=== PATIENT | female | born 1965 | race Caucasian/White ===

== ENCOUNTER 2018-05-15 21:48 | Emergency (ER) | payer OTHER, MEDICAID ==
[~2018-05-15] VITALS: Ht 139.7 cm; Wt 45.4 kg
[~2018-05-15 21:48] MED LIST: BUPR300T46 PO; CYCL10TA9 PO; DOCU50CA7 PO; DULO60CA64 PO; FAMO20TA8 PO; GABA-531 PO; HYG25 PO; LIP20 PO; MELO15TA13 PO; SENN8.6T19 PO; TRAM50TA2 PO
[2018-05-15] MEDS ORDERED: FLUORESCEIN SODIUM 1 MG OPHTHALMIC STRIP OP ONE (21:49)
[2018-05-15] MEDS ORDERED: BALANCED SALT IRRIG SOLN 15 ML IO ONE (21:49)
[2018-05-15] MEDS ORDERED: TETRACAINE HCL 0.5% OPHTHALMIC DROPS 15 ML OP ONE (21:49)
[2018-05-15 22:03] VITALS: BP_SYST 145
[2018-05-16 01:15] VITALS: BP_SYST 145
== END 2018-05-16 01:15 | disposition home or self-care (01) ==
LOC: SED 21:48
DX: H57.12 Ocular pain, left eye (principal); I10 Essential (primary) hypertension; Z88.6 Allergy status to analgesic agent; Z91.02 Food additives allergy status; Z79.899 Other long term (current) drug therapy
CPT/HCPCS: 99282

== ENCOUNTER 2019-04-03 11:29 | Inpatient (IN) | payer OTHER, MEDICAID ==
[~2019-04-03] VITALS: Ht 139.7 cm; Wt 50.3 kg
[2019-04-03 11:29] VITALS: BP_SYST 132
--- NOTE | 2019-04-03 11:29 | NUR ---
BROUGHT IN BY [facility], PLACED IN BED #4 AND TRIAGED. REPORT GIVEN TO GABI
--- NOTE | 2019-04-03 11:44 | NUR ---
Patient to ER bed 04 to gown for evaluation. Side rails up.
--- NOTE | 2019-04-03 11:45 | NUR ---
Pt presents to ED c/o generalized body pain,pt newly DX: fibromyalgia.
--- NOTE | 2019-04-03 12:01 | NUR ---
DR ARGUELLO AT BEDSIDE FOR EVALUATION
[2019-04-03] MEDS ORDERED: ONDANSETRON HCL 4 MG/2 ML VIAL IVP ONE (12:15)
[2019-04-03] MEDS ORDERED: fentaNYL CITRATE/PF 100 MCG/2 ML AMP IVP ONE (12:15)
[2019-04-03] MEDS ORDERED: NACL 0.9% 2,000 ML IV ONE (12:15)
--- NOTE | 2019-04-03 12:20 | NUR ---
ABG BEING DONE AT BEDSIDE.
[2019-04-03 12:48] LABS: BASOPHILS % (AUTO) 0.6 % (0.0-2.0); EOSINOPHILS % (AUTO) 0.8 % (0.0-4.0); HEMOGLOBIN 14.5 g/dL (12.0-16.0); LYMPHOCYTES # (AUTO) 2.6 K/uL (1.0-5.5); MEAN CORPUSCULAR HEMOGLOBIN 29 pg (27-31); MEAN CORPUSCULAR HGB CONC 34 % (32-36); MEAN CORPUSCULAR VOLUME 85 fL (79.0-98.0); MONOCYTES # (AUTO) 0.7 K/uL (0.0-1.0); MONOCYTES % (AUTO) 10.8 % (1.7-9.3); NEUTROPHILS # (AUTO) 2.8 K/uL (1.8-7.7); NEUTROPHILS % (AUTO) 45.8 % (40.0-70.0); PLATELET COUNT (AUTO) 341 K/uL (130-430); RED BLOOD CELL COUNT(AUTO) 5.04 MIL/uL (4.2-6.2); RED CELL DISTRIBUTION WIDTH 13.4 % (9.0-15.0); WHITE BLOOD COUNT (AUTO) 6.1 K/uL (4.8-10.8)
[2019-04-03 12:51] LABS: CALCIUM 9.5 mg/dL (8.4-11.0); CREATININE 0.99 mg/dL (0.55-1.30)
[2019-04-03 12:55] LABS: PROTHROMBIN TIME 9.9 SECS (9.5-12.5)
[2019-04-03 13:02] LABS: ALBUMIN 3.8 g/dL (3.4-4.8); TOTAL BILIRUBIN 0.4 mg/dL (0.0-1.0)
[2019-04-03 13:07] LABS: POTASSIUM 2.7 mmol/L (3.5-5.1)
[2019-04-03] MEDS ORDERED: POTASSIUM CHLORIDE 40 MEQ in NS 250 ML IV ONE (13:15)
--- NOTE | 2019-04-03 15:00 | NUR ---
PT REPORTS PAIN AT TOLERABLE LEVEL 4/10.
[2019-04-03 15:20] LABS: BILIRUBIN,URINE NEGATIVE (NEGATIVE); BLOOD, URINE 2+ (NEGATIVE); CLARITY/URINE SL CLOUDY (CLEAR); COLOR,URINE YELLOW (YELLOW); GLUCOSE,URINE NEGATIVE (NEGATIVE); KETONES,URINE 1+ (NEGATIVE); LEUKOCYTE ESTERASE ,URINE 3+ (NEGATIVE); NITRITE, URINE NEGATIVE (NEGATIVE); PROTEIN URINE NEGATIVE (NEGATIVE); UROBILINOGEN,URINE 0.2 (0.2-1.0)
[2019-04-03 15:29] LABS: BACTERIA,URINE MANY /HPF (None Seen); MUCUS,URINE None Seen /LPF (None Seen); RBC,URINE 0-3 /HPF (0-3); WBC,URINE 80-100 /HPF (0-3)
--- NOTE | 2019-04-03 15:45 | NUR ---
Pt tolerating K-rider.Continuing to monitor
[2019-04-03] MEDS ORDERED: cefTRIAXone 1 GM IVPB PREMIX 50 ML IV ONE (16:00)
--- NOTE | 2019-04-03 16:00 | NUR ---
Medication reconciliation completed with information provided by PT. Any prior medication reconciliation on file was reviewed and corrected.
--- NOTE | 2019-04-03 16:32 | NUR ---
ADMISSION NOTE Received patient from ER via xavi, received report from GABI FINLEY. Patient admitted with diagnosis of UTI. Patient oriented to hospital routine, call light, toileting and safety-patient verbalized understanding.
[2019-04-03 16:53] VITALS: BP_SYST 135
--- NOTE | 2019-04-03 17:00 | NUR ---
rounds rec patient from er awake alert with ivf infusing well on the l arm no infiltration noted. c.o of gen body pain at this time but stated to be manageable. ambulates to the br with min assists. resp easy and unlabored. bed to the lowest position and siode rails up and locked. call light within reached. will continue to monitor patient.
--- NOTE | 2019-04-03 17:10 | NUR ---
Patient will be admitted to care of . Admitted to medsurg unit. Will go to room 126A. Summary report printed. Report will be given at bedside.
--- NOTE | 2019-04-03 19:01 | NUR ---
CONSULTATION PAGED/CALLED Reason for Consultation: UTI Person Who was Notified: SOPHY Consulting Physician: DR. SERRANO Registered Respiratory Therapist Specialty: ID Ordering Physician: RAQEUL HI
[2019-04-03 20:00] VITALS: BP_SYST 142
--- NOTE | 2019-04-03 20:15 | NUR ---
PATIENT IS COMPLAINING OF SEVERE HEADACHE AND GENERALIZED PAIN. MED REC HAS NOT BEEN REVIEWED. WILL PAGE DOCTORS FOR ORDERS.
--- NOTE | 2019-04-03 20:35 | NUR ---
PAGING DR. RAQUEL BELLO FOR ORDERS Paged Dr. Bello per primary nurse's request for orders. Spoke with Lily from exchange. Will wait for MD to call back.
--- NOTE | 2019-04-03 21:23 | NUR ---
SECOND PAGE OUT TO DR. RAQUEL BELLO Second page for Dr. Raquel Bello for orders. Spoke with Kelly from exchange. Will wait for MD to call back.
--- NOTE | 2019-04-03 21:25 | NUR ---
PATIENT CRYING IN BED. STILL HAVING SEVERE HEADACHE. SPOKE WITH PATIENT'S OVER THE PHONE REGARDING PROMISED TREATMENT BY THE ADMITTING DOCTOR. SIGNALING PROJECT ENGINEER NOTIFIED REGARDING THE SITUATION REGARDING MEDICATION NEED.
--- NOTE | 2019-04-03 21:51 | NUR ---
Received Call back from Selam Arnold Continue all home medications. New order Tylenol 650mg for pain 1-3/fever, [place] 5/325mg for moderate pain 4-6, and [place] 10/325mg for severe pain 7-10.
[2019-04-03] MEDS ORDERED: HYDROcodone/ACETAMIN 5-325 MG TAB (NORCO/ VICODIN) PO PRN (22:00)
[2019-04-03] MEDS ORDERED: FAMOTIDINE 20 MG TABLET PO PRN (22:00)
[2019-04-03] MEDS ORDERED: GABAPENTIN 300 MG CAPSULE PO SCH (22:00)
[2019-04-03] MEDS ORDERED: HYDROcodone/ACETAMIN 10-325 MG TAB PO PRN (22:00)
[2019-04-03] MEDS ORDERED: CHLORTHALIDONE 25 MG TABLET (HYGROTON) PO SCH (22:00)
[2019-04-03] MEDS ORDERED: MELOXICAM 7.5 MG TABLET PO SCH (22:00)
[2019-04-03] MEDS ORDERED: traMADol HCL HCL 50 MG TABLET (ULTRAM) PO SCH (22:30)
[2019-04-03] MEDS ORDERED: DOCUSATE SODIUM 100 MG CAPSULE PO SCH (22:30)
--- NOTE | 2019-04-03 22:45 | NUR ---
MEDICATIONS ADMINISTERED WITH NO ADVERSE EFFECTS. INDICATION AND SIDE EFFECTS EDUCATION PROVIDED. WILL MONITOR PATIENT FOR ANY CHANGE IN CONDITION.
[2019-04-03] MEDS: ACETAMINOPHEN 325 MG TABLET PO PRN (22:56)
[2019-04-04] VITALS: BP_SYST 121
--- NOTE | 2019-04-04 01:15 | NUR ---
PATIENT IN BED. VITALS ARE STABLE. NO FURTHER COMPLAINTS AT THIS TIME.
--- NOTE | 2019-04-04 04:33 | NUR ---
PATIENT ASLEEP IN BED. NO CHANGE IN CONDITION AND WILL MONITOR ON ROUNDS.
--- NOTE | 2019-04-04 06:46 | NUR ---
CLOSING NOTES PATIENT IN BED RESTING. IV CLEAN DRY AND INTACT. NO RESPIRATORY DISTRESS. BED LOCKED IN LOW POSITION. ALL NEEDS HAVE BEEN MET AND WILL ENDORSE CARE TO ONCOMING NURSE.
--- NOTE | 2019-04-04 07:22 | NUR ---
OPENING NOTE Patient resting in the bed. No acute distress. AAO x 4. Denied of pain. Skin warm and dry to touch. SL intact to LAC, no redness, no swelling, patent. Discussed the safety measure maintained, use call light when needs help, and plan of care, verbally understanding. Safety measure maintained. Call light within reached. Bed locked in low position, side rails up. Refused bed alarm, risk and benefit explained, verbally understanding. Will continue to monitor.
[2019-04-04 07:55] VITALS: BP_SYST 125
[2019-04-04] MEDS ORDERED: cefTRIAXone 1 GM IVPB PREMIX 50 ML IV SCH (09:00)
[2019-04-04] MEDS: CHLORTHALIDONE 25 MG TABLET (HYGROTON) PO SCH (09:48)
[2019-04-04] MEDS: MELOXICAM 7.5 MG TABLET PO SCH (09:48)
[2019-04-04] MEDS: traMADol HCL HCL 50 MG TABLET (ULTRAM) PO SCH ×3 (09:48→21:33)
[2019-04-04] MEDS: GABAPENTIN 300 MG CAPSULE PO SCH ×2 (09:49→21:33)
[2019-04-04] MEDS: DOCUSATE SODIUM 100 MG CAPSULE PO SCH ×2 (09:49→21:33)
[2019-04-04] MEDS: buPROPion HCL 150 MG XL TAB PO SCH (09:49)
[2019-04-04] MEDS: CYCLOBENZAPRINE HCL 10 MG TABLET (FLEXERIL) PO SCH ×2 (09:49→21:34)
--- NOTE | 2019-04-04 09:49 | NUR ---
SCHEDULE MED GIVEN.
--- NOTE | 2019-04-04 11:30 | NUR ---
ROUND Patient resting in the bed. No acute distress. No c/o pain at this time. Safety measure maintained. Call light within reached. Bed locked in low position, side rails up. Continue to monitor.
[2019-04-04 12:40] VITALS: BP_SYST 124
--- NOTE | 2019-04-04 13:30 | NUR ---
ROUND Patient resting in the bed. No acute distress. No c/o pain at this time. at bedside. Safety measure maintained. Call light within reached. Bed locked in low position, side rails up. Continue to monitor.
--- NOTE | 2019-04-04 15:22 | NUR ---
SEEN AND EXAMINED BY PATTI HI COVERED FRO RAQUEL HI.
[2019-04-04 16:20] VITALS: BP_SYST 125
--- NOTE | 2019-04-04 17:00 | NUR ---
ROUND Patient resting in the bed. No acute distress. at bedside. Safety measure maintained. Call light within reached. Bed locked in low position, side rails up. Continue to monitor.
--- NOTE | 2019-04-04 18:55 | NUR ---
CLOSING NOTE Patient resting in the bed. No acute distress. AAO x 4. No c/o pain. Skin warm and dry to touch. SL intact to LAC, no redness, no swelling, patent. All needs met and attended. at bedside. Safety measure maintained. Call light within reached. Bed locked in low position, side rails up. Refused bed alarm, risk and benefit explained, verbally understanding. Will endorse to night nurse.
--- NOTE | 2019-04-04 19:10 | NUR ---
OPENING NOTE BEDSIDE REPORT GIVEN WITH PATIENT IN CHAIR RESTING. AAOX4 AND ABLE TO VERBALIZE HER NEEDS. IV ON THE LEFT AC 20G FLUSHED AND PATENT. NO S/S OF INFECTION. PATIENT IS AMBULATORY WITH A STEADY GAIT. INFORMED PATIENT OF MEDICATIONS FOR TONIGHT. REFUSED BED ALARM WITH EDUCATION PROVIDED. CALL LIGHT PLACED WITHIN REACH AND WILL MONITOR ON ROUNDS.
[2019-04-04 20:00] VITALS: BP_SYST 105
[2019-04-04] MEDS: DULoxetine HCL 30 MG CAPSULE.DR (CYMBALTA) PO SCH (21:00)
[2019-04-04] MEDS: ATORVASTATIN 20 MG TABLET PO SCH (21:33)
[2019-04-04] MEDS: SENNOSIDES 8.6 MG TABLET PO SCH (21:33)
--- NOTE | 2019-04-04 22:28 | NUR ---
PATIENT IN BED RESTING. MEDICATION TOLERATED WELL. REFUSED CYMBALTA MEDICATION, STATING SHE NO LONGER TAKES IT AND STATES SHE VERIFIED IT WITH HER OVER THE PHONE. REQUESTED NORCO FOR PAIN. ICE PACKS GIVEN FOR PAIN RELIEF OF HEADACHES. WILL CONTINUE TO MONITOR ON ROUNDS.
[2019-04-05 00:26] VITALS: BP_SYST 109
--- NOTE | 2019-04-05 00:36 | NUR ---
ASLEEP IN BED. NO FACIAL GRIMACING NOTED. NO RESPIRATORY DISTRESS. CALL LIGHT WITHIN REACH.
--- NOTE | 2019-04-05 03:35 | NUR ---
PATIENT IN BED RESTING. NO COMPLAINTS OF PAIN OR RESPIRATORY DISTRESS. CALL LIGHT WITHIN REACH AND MONITOR ON ROUNDS.
--- NOTE | 2019-04-05 07:38 | NUR ---
OPENING NOTE Patient resting in the bed. No acute distress. AAO x 4. Denied of pain at this time. Skin warm and dry to touch. SL intact to LAC, no redness, no swelling, patent. Discussed the safety measure maintained, use call light when needs help, and plan of care, verbally understanding. Safety measure maintained. Bed locked in low position, side rails up. Refused bed alarm, risk and benefit explained, verbally understanding. Call light within reached. Will continue to monitor.
[2019-04-05 07:55] VITALS: BP_SYST 150
[2019-04-05] MEDS: traMADol HCL HCL 50 MG TABLET (ULTRAM) PO SCH ×3 (09:15→20:37)
[2019-04-05] MEDS: DOCUSATE SODIUM 100 MG CAPSULE PO SCH ×2 (09:15→20:35)
[2019-04-05] MEDS: CYCLOBENZAPRINE HCL 10 MG TABLET (FLEXERIL) PO SCH ×2 (09:15→20:36)
[2019-04-05] MEDS: buPROPion HCL 150 MG XL TAB PO SCH (09:15)
[2019-04-05] MEDS: CHLORTHALIDONE 25 MG TABLET (HYGROTON) PO SCH (09:15)
[2019-04-05] MEDS: MELOXICAM 7.5 MG TABLET PO SCH (09:15)
[2019-04-05] MEDS: GABAPENTIN 300 MG CAPSULE PO SCH ×2 (09:15→20:37)
--- NOTE | 2019-04-05 10:10 | NUR ---
SEEN AND EXAMINED BY ADALBERTO CORBETT.
[2019-04-05] MEDS: cefTRIAXone 1 GM IVPB PREMIX 50 ML IV SCH (10:14)
--- NOTE | 2019-04-05 11:50 | NUR ---
BED BATH Bed bath provided, linen and hospital gown changed. Procedure tolerated well. No acute distress. Safety measure maintained. Call light within reached. Bed locked in low position, side rails up. Continue to monitor.
[2019-04-05 13:10] VITALS: BP_SYST 116
--- NOTE | 2019-04-05 13:20 | NUR ---
BATHROOM Patient ambulatory to bathroom in steady gait. Void freely, no hematuria/dysuria noted. Safety measure maintained. Continue to monitor.
--- NOTE | 2019-04-05 15:05 | NUR ---
SEEN AND EXAMINED BY RAQUEL FALCON WITH ORDER RECEIVED.
--- NOTE | 2019-04-05 15:17 | NUR ---
CONSULT GI ABDOMINAL PAIN DR NASSAR [phone] DR BANDA BUCCARO S/[facility]
--- NOTE | 2019-04-05 17:00 | NUR ---
ROUND Patient resting in the bed. No acute distress. at the bedside. Safety measure maintained. Bed locked in low position, side rails up, Call light within reached. Continue to monitor.
[2019-04-05 17:04] VITALS: BP_SYST 147
--- NOTE | 2019-04-05 18:33 | NUR ---
CLOSING NOTE Patient resting in the bed. No acute distress. No c/o pain during shift. Skin warm and dry to touch. SL intact to LAC, no redness, no swelling, patent. All needs met and attended. Safety measure maintained. Bed locked in low position, side rails up. Refused bed alarm, risk and benefit explained, verbally understanding. Call light within reached. Will endorse to night nurse.
[2019-04-05 19:00] VITALS: BP_SYST 143
--- NOTE | 2019-04-05 19:15 | NUR ---
change of shift.pt.presents quiescent affect;calm,viewing tv programming via telephone.no c/o pain,nausea.pt.capable to reposition self.general status stable.respiratory status stable.iv access;intact;patent,v lock.call light/telephone w/in reach of the pt.
[2019-04-05 20:00] VITALS: BP_SYST 143
--- NOTE | 2019-04-05 20:00 | NUR ---
pt.assessed.v/s assessed;values w/in noram limits.pt.prestr bno c/opoa,nausea.pt.presents quiescent affect;calm.viewing tv programming via phone.i have apprised the pt.that snacks/beverages are available w/in the shift.no requests posited @this hour.general status stable/respiratory status stable@room air.unlabored.call light/telephone w/in the reach of the pt.i have provided the pt.a room telephone.i have provided the pt.the demonstration re;indication for the room telephone.
[2019-04-05] MEDS: DULoxetine HCL 30 MG CAPSULE.DR (CYMBALTA) PO SCH (20:36)
[2019-04-05] MEDS: ATORVASTATIN 20 MG TABLET PO SCH (20:37)
[2019-04-05] MEDS: SENNOSIDES 8.6 MG TABLET PO SCH (20:37)
--- NOTE | 2019-04-05 21:00 | NUR ---
2100p medications administered.pt.had refused the ultram;50mg po scheduled:q-12hrs,.i have apprised the pt.that norco; 5/325mg or 10/325mg po is ordered if presents pain w/in the shift.no requests post @this hour.
--- NOTE | 2019-04-05 22:00 | NUR ---
pt.assessed.pt.presents quiescent affect;calm,pt.viewing tv programming via phone.no c/o pain,nausea@this hour. no requests posited.general status stable.respiratory status stable.pt.capable to reposition self.call light/telephone w/in the reach of the pt.
--- NOTE | 2019-04-05 23:30 | NUR ---
;a had requested the pt's face sheet faxed to his home;nsg clarified w/angel;rn/boiler house operator the issue was confirmed w/in legal parameters to faxed the pt's face sheet to home;fax.fax sent and confirmed spa receptionist per 's return call.
--- NOTE | 2019-04-06 | NUR ---
pt.assessed.v/s assessed:values w/in normal limits.pt.presents quiescent affect;calm,somnolent. general status stable.respiratory status stable.pt.capable to reposition self.call light/telephone w/in the reach of the pt.
[2019-04-06 00:35] VITALS: BP_SYST 138
[2019-04-06] MEDS: ACETAMINOPHEN 325 MG TABLET PO PRN (00:47)
--- NOTE | 2019-04-06 01:00 | NUR ---
pt.had requested medication;pain.i have administered tylenol;650mg po.to f/u re;pain medication efficacy per pain mgx protocol. no additional requests posited @this hour.
--- NOTE | 2019-04-06 02:00 | NUR ---
pt.assessed.pt.presents quiescent affect;calm,somnolent.general status stable.respiratory status stable;unlabored. pt.capable to reposition self.call light/telephone w/in the reach of the pt.
--- NOTE | 2019-04-06 04:00 | NUR ---
pt.assessed.pt.presents quiescent affect;calm,somnolent.general status stable.respiratory status stable;unlabored, pt.capable to reposition self.call light/telephone w/in the reach of the pt.
--- NOTE | 2019-04-06 06:47 | NUR ---
pt.assessed.pt.presents quiescent affect;calm,somnolent.general status stable.respiratory status stable.unlabored. pt.capable to reposition self.pt.to be assessed per ;sheila this am;04/06/19.call light/telephone w/in the reach of the pt.
[2019-04-06 07:21] LABS: BASOPHILS % (AUTO) 0.7 % (0.0-2.0); EOSINOPHILS # (AUTO) 0.1 K/uL (0.0-0.4); EOSINOPHILS % (AUTO) 1.3 % (0.0-4.0); HEMATOCRIT 40.5 % (36-48); HEMOGLOBIN 13.8 g/dL (12.0-16.0); LYMPHOCYTES # (AUTO) 1.5 K/uL (1.0-5.5); MEAN CORPUSCULAR HEMOGLOBIN 30 pg (27-31); MEAN CORPUSCULAR HGB CONC 34 % (32-36); MEAN CORPUSCULAR VOLUME 87 fL (79.0-98.0); MONOCYTES # (AUTO) 0.4 K/uL (0.0-1.0); MONOCYTES % (AUTO) 6.5 % (1.7-9.3); NEUTROPHILS # (AUTO) 4.6 K/uL (1.8-7.7); NEUTROPHILS % (AUTO) 68.5 % (40.0-70.0); PLATELET COUNT (AUTO) 342 K/uL (130-430); RED BLOOD CELL COUNT(AUTO) 4.66 MIL/uL (4.2-6.2); RED CELL DISTRIBUTION WIDTH 13.3 % (9.0-15.0); WHITE BLOOD COUNT (AUTO) 6.7 K/uL (4.8-10.8)
--- NOTE | 2019-04-06 07:21 | NUR ---
rn opening note Report was endorsed by night nurse. Patient is laying in bed appears to be resting breathing is equal and non labored. Patient shows no signs of any distress. Patient has all safety precautions in place. will continue to monitor.
[2019-04-06 07:27] LABS: ALBUMIN 3.5 g/dL (3.4-4.8); C-REACTIVE PROTEIN QUANT 0.6 mg/dL (0-0.5); CALCIUM 9.2 mg/dL (8.4-11.0); CREATININE 0.88 mg/dL (0.55-1.30); POTASSIUM 3.4 mmol/L (3.5-5.1); TOTAL BILIRUBIN 0.3 mg/dL (0.0-1.0)
[2019-04-06 08:20] LABS: ERYTHROCYTE SEDIMENTATION RATE 12 MM/HR (0-20)
[2019-04-06] MEDS: GABAPENTIN 300 MG CAPSULE PO SCH (08:22)
[2019-04-06] MEDS: DOCUSATE SODIUM 100 MG CAPSULE PO SCH (08:22)
[2019-04-06] MEDS: traMADol HCL HCL 50 MG TABLET (ULTRAM) PO SCH ×2 (08:23→15:00)
[2019-04-06] MEDS: MELOXICAM 7.5 MG TABLET PO SCH (08:24)
[2019-04-06] MEDS: CYCLOBENZAPRINE HCL 10 MG TABLET (FLEXERIL) PO SCH (08:24)
[2019-04-06] MEDS: buPROPion HCL 150 MG XL TAB PO SCH (08:24)
[2019-04-06 08:26] VITALS: BP_SYST 142
[2019-04-06] MEDS: cefTRIAXone 1 GM IVPB PREMIX 50 ML IV SCH (09:26)
[2019-04-06] MEDS: CHLORTHALIDONE 25 MG TABLET (HYGROTON) PO SCH (09:28)
--- NOTE | 2019-04-06 09:46 | NUR ---
medication/NPO Patient is awake and alert no signs of any distress, breathing is equal and non labored. Patients scheduled medication given as ordered. Patient placed NPO for gastric emptying test patient made aware. Spoke with lenka from [employer] states she will be here to get the patient around [phone]. Patient made aware. Patient has no further questions. Patient states pain is comfortable at 4/10. all safety precautions in place. Patient educated tool design draftsperson light call light is with patient. will continue to monitor.
--- NOTE | 2019-04-06 10:29 | NUR ---
NEW IV site Patient IV catheter to left ac 20g is no longer flushing removed catheter, catheter is intact, apply gauze and tape with pressure to site. New IV site obtain left wrist 22 G good blood return flushing well. will continue to monitor.
--- NOTE | 2019-04-06 12:00 | NUR ---
rn rounding Patient is laying in bed awake and alert family member is at bed side. Patient has all safety precautions in place. Call light is with her educated to use for assistance. Patient has no other needs at this time. will continue to monitor.
[2019-04-06 12:37] VITALS: BP_SYST 146
--- NOTE | 2019-04-06 14:24 | NUR ---
Patient is having gastric emptying study done, transferred via wheel chair.
--- NOTE | 2019-04-06 15:30 | NUR ---
Patient is refusing medication patient states she does not want it. Patient has no other needs at this time. Patient educated to use call light for assistance. Call light is with patient. Patient has no other needs at this time. will continue to monitor.
[2019-04-06 16:40] VITALS: BP_SYST 146
[2019-04-06 17:01] VITALS: BP_SYST 146
--- NOTE | 2019-04-06 17:30 | NUR ---
discharge Patient is awake and alert sitting in bed, spouse at bed side. charge nurse spoke with MD received orders for Discharge. Patient educated to follow up with Primary care physician and to follow up with GI. Patient provided discharge paper work reviewed and patient has no further questions. Patients IV catheter removed catheter intact, apply gauze and tape to insertion site. Patient ID band removed. Patient refused wheel chair transferred and walked to car. Patient spouse Rudy to bring patient home.
== END 2019-04-06 17:30 | disposition home or self-care (01) | DRG 690 ==
LOC: SED 11:29 → SMU 16:19
PROVIDERS: ADMIT Preventive Medicine Preventive Medicine/Occupational Environmental Medicine; ATTEND Preventive Medicine Preventive Medicine/Occupational Environmental Medicine
DX: N10 Acute pyelonephritis (principal); M79.7 Fibromyalgia; K57.90 Diverticulosis of intestine, part unspecified, without perforation or abscess without bleeding; M06.9 Rheumatoid arthritis, unspecified; M41.9 Scoliosis, unspecified; M19.90 Unspecified osteoarthritis, unspecified site; E87.5 Hyperkalemia; G89.4 Chronic pain syndrome; I10 Essential (primary) hypertension; K21.9 Gastro-esophageal reflux disease without esophagitis; K59.00 Constipation, unspecified; Z87.440 Personal history of urinary (tract) infections; Z98.1 Arthrodesis status; Z79.899 Other long term (current) drug therapy; Z88.6 Allergy status to analgesic agent; Z91.018 Allergy to other foods
CPT/HCPCS: 36415; 71045; 78264-TC; 80053; 81000-TC; 83605; 83690-TC; 84484; 85025; 85610-TC; 85651-TC; 85730-TC; 86140; 87040-TC; 87086; 93005; 96361; 96365; 96368; 96375; 99285; A9541; J0696; J2405; J3010; J3480; J7050

== ENCOUNTER 2019-04-06 23:13 | Emergency (ER) | payer OTHER, MEDICAID ==
[~2019-04-06] VITALS: Ht 139.7 cm; Wt 45.4 kg
[2019-04-06 23:15] VITALS: BP_SYST 127
[2019-04-07 00:54] VITALS: BP_SYST 125
== END 2019-04-07 00:54 | disposition home or self-care (01) ==
LOC: SED 23:13
DX: T42.6X1A Poisoning by other antiepileptic and sedative-hypnotic drugs, accidental (unintentional), initial encounter (principal); T45.0X1A Poisoning by antiallergic and antiemetic drugs, accidental (unintentional), initial encounter; Z88.6 Allergy status to analgesic agent; Z91.018 Allergy to other foods; Z79.899 Other long term (current) drug therapy; Y92.89 Other specified places as the place of occurrence of the external cause
CPT/HCPCS: 99281; 99283

== ENCOUNTER 2020-07-04 16:55 | Emergency (ER) | payer OTHER, MEDICAID ==
[~2020-07-04] VITALS: Ht 137.2 cm; Wt 46.3 kg
[~2020-07-04 16:55] MED LIST changes: -DULO60CA64 PO; +DULO60CA65 PO
[2020-07-04 17:00] VITALS: BP_SYST 113
--- NOTE | 2020-07-04 17:00 | NUR ---
Patient to ER bed 3 to gown for evaluation. Side rails up. Report given to DEBORAH.
--- NOTE | 2020-07-04 17:06 | NUR ---
BERNARDA TO ASSUME CARE. RECEIVED AND IN ROOM. BIB FROM HOME VIA WHEELCHAIR TEARFUL AND ANXIOUS. INCREASE IN PAIN TO LT SHOULDER. SEVER PAIN WITH MOVEMENT SENSATION AND CIRCULATION INTACT TO LT LOWER EXT
--- NOTE | 2020-07-04 17:11 | NUR ---
DR KAUR IN TO ASSESS
--- NOTE | 2020-07-04 17:19 | NUR ---
PORTABLE XRAY DONE AT BEDSIDE
--- NOTE | 2020-07-04 17:27 | NUR ---
PT MEDICATED FOR ANXIETY WITH XANAX AND TORADOL FOR 10/10 PAIN IM. PT TOLERATED WELL.
[2020-07-04] MEDS ORDERED: KETOROLAC TROMETHAMINE 30 MG VIAL IM ONE (17:30)
[2020-07-04] MEDS ORDERED: ALPRAZolam 0.25 MG TABLET PO ONE (17:30)
--- NOTE | 2020-07-04 17:33 | NUR ---
BLODD BEING DRAWN AT BEDSIDE PER LAB
[2020-07-04 17:44] LABS: BASOPHILS # (AUTO) 0.1 K/uL (0.0-0.2); BASOPHILS % (AUTO) 0.9 % (0.0-2.0); EOSINOPHILS # (AUTO) 0.1 K/uL (0.0-0.4); EOSINOPHILS % (AUTO) 1.3 % (0.0-4.0); HEMATOCRIT 39.2 % (36-48); HEMOGLOBIN 13.5 g/dL (12.0-16.0); LYMPHOCYTES # (AUTO) 3.3 K/uL (1.0-5.5); LYMPHOCYTES % (AUTO) 31.5 % (20.5-51.5); MEAN CORPUSCULAR HEMOGLOBIN 30 pg (27-31); MEAN CORPUSCULAR HGB CONC 35 % (32-36); MEAN CORPUSCULAR VOLUME 87 fL (79.0-98.0); MONOCYTES # (AUTO) 0.9 K/uL (0.0-1.0); MONOCYTES % (AUTO) 8.4 % (1.7-9.3); NEUTROPHILS # (AUTO) 6.1 K/uL (1.8-7.7); NEUTROPHILS % (AUTO) 57.9 % (40.0-70.0); PLATELET COUNT (AUTO) 340 K/uL (130-430); RED BLOOD CELL COUNT(AUTO) 4.53 MIL/uL (4.2-6.2); RED CELL DISTRIBUTION WIDTH 13.3 % (9.0-15.0); WHITE BLOOD COUNT (AUTO) 10.5 K/uL (4.8-10.8)
[2020-07-04 18:02] LABS: ANION GAP 11 (5-15); CALCIUM 9.2 mg/dL (8.4-11.0); CHLORIDE 101 mmol/L (98-107); CREATININE 0.79 mg/dL (0.55-1.30); GLUCOSE 101 mg/dL (70-99); POTASSIUM 3.8 mmol/L (3.5-5.1); SODIUM SERUM 138 mmol/L (136-145); UREA NITROGEN, BLOOD 11 mg/dL (8-21)
[2020-07-04 18:03] LABS: GFR AFRICAN AMERICAN 97 mL/min (>90)
[2020-07-04 18:10] LABS: ALANINE AMINOTRANSFERASE 47 U/L (12-78); ALBUMIN 4.1 g/dL (3.4-4.8); ASPARTATE AMINOTRANSFERASE 28 U/L (10-37); TOTAL BILIRUBIN 0.5 mg/dL (0.0-1.0)
[2020-07-04 18:32] LABS: INR 0.9 (0.8-1.2); PROTHROMBIN TIME 9.5 SECS (9.5-12.5)
--- NOTE | 2020-07-04 18:46 | NUR ---
DR KAUR IN TO REASSESS
[2020-07-04 19:16] VITALS: BP_SYST 119
--- NOTE | 2020-07-04 19:17 | NUR ---
Patient given written and verbal discharge instructions and verbalizes understanding. ER MD discussed with patient the results and treatment provided. Patient in stable condition. ID arm band removed. Rx of XANAX given. Patient educated on pain management and to follow up with PMD. Pain Scale 4/10 Opportunity for questions provided and answered. Medication side effect fact sheet provided.
[2020-07-04 22:20] LABS: CKMB RELATIVE INDEX 1.4 (0.0-2.9); CREATINE KINASE MB 3.3 ng/mL (0-3.6)
== END 2020-07-04 19:16 | disposition home or self-care (01) ==
LOC: SED 16:55
DX: R07.89 Other chest pain (principal); M79.7 Fibromyalgia; I10 Essential (primary) hypertension; J45.909 Unspecified asthma, uncomplicated; Z79.899 Other long term (current) drug therapy; Z88.6 Allergy status to analgesic agent; Z88.8 Allergy status to other drugs, medicaments and biological substances
CPT/HCPCS: 36415; 71045; 80053; 82550; 82553; 84145; 84484; 84703; 85025; 85610; 85730; 93005; 96372; 99285; J1885

== ENCOUNTER 2021-12-30 09:02 | Emergency (ER) | payer OTHER, MEDICAID ==
[~2021-12-30] VITALS: Ht 139.7 cm; Wt 49.9 kg
[~2021-12-30 09:02] MED LIST changes: +CYCL10TA25 PO; -CYCL10TA9 PO
[2021-12-30 09:12] VITALS: BP_SYST 144
[2021-12-30] MEDS ORDERED: DIAZEPAM 5 MG TABLET (VALIUM) PO ONE (09:30)
[2021-12-30] MEDS ORDERED: KETOROLAC TROMETHAMINE 30 MG VIAL IM ONE (09:30)
[2021-12-30 09:34] LABS: BASOPHILS # (AUTO) 0.1 K/uL (0.0-0.2); BASOPHILS % (AUTO) 0.4 % (0.0-2.0); EOSINOPHILS # (AUTO) 0.1 K/uL (0.0-0.4); EOSINOPHILS % (AUTO) 0.8 % (0.0-4.0); HEMATOCRIT 39.7 % (36-48); HEMOGLOBIN 13.4 g/dL (12.0-16.0); LYMPHOCYTES # (AUTO) 1.9 K/uL (1.0-5.5); LYMPHOCYTES % (AUTO) 14.2 % (20.5-51.5); MEAN CORPUSCULAR HEMOGLOBIN 29 pg (27-31); MEAN CORPUSCULAR HGB CONC 34 % (32-36); MEAN CORPUSCULAR VOLUME 85 fL (79.0-98.0); MONOCYTES # (AUTO) 0.7 K/uL (0.0-1.0); MONOCYTES % (AUTO) 5.2 % (1.7-9.3); NEUTROPHILS # (AUTO) 10.4 K/uL (1.8-7.7); NEUTROPHILS % (AUTO) 79.4 % (40.0-70.0); PLATELET COUNT (AUTO) 361 K/uL (130-430); RED BLOOD CELL COUNT(AUTO) 4.68 MIL/uL (4.2-6.2); RED CELL DISTRIBUTION WIDTH 13.5 % (9.0-15.0); WHITE BLOOD COUNT (AUTO) 13.2 K/uL (4.8-10.8)
[2021-12-30 09:47] LABS: ANION GAP 9 (5-15); CALCIUM 9.5 mg/dL (8.4-11.0); CHLORIDE 104 mmol/L (98-107); GLUCOSE 96 mg/dL (70-99); POTASSIUM 3.8 mmol/L (3.5-5.1); SODIUM SERUM 137 mmol/L (136-145); UREA NITROGEN, BLOOD 16 mg/dL (8-21)
[2021-12-30 09:51] LABS: GFR AFRICAN AMERICAN 83 mL/min (>90)
[2021-12-30 09:56] LABS: ALANINE AMINOTRANSFERASE 30 U/L (12-78); ALBUMIN 4.1 g/dL (3.4-4.8); ASPARTATE AMINOTRANSFERASE 21 U/L (10-37); TOTAL BILIRUBIN 0.3 mg/dL (0.0-1.0)
[2021-12-30 10:00] VITALS: BP_SYST 110
[2021-12-30] MEDS ORDERED: LIDOCAINE PATCH 5% 1 EA TP ONE (10:30)
[2021-12-30] MEDS ORDERED: AZIT-93 PO (12:21)
[2021-12-30] MEDS ORDERED: BENZ150C4 PO (12:22)
[2021-12-30] MEDS ORDERED: IBUP-1969 PO (12:29)
[2021-12-30] MEDS ORDERED: ANT30 PO (12:29)
== END 2021-12-30 12:40 | disposition home or self-care (01) ==
LOC: SED 09:02
DX: J18.9 Pneumonia, unspecified organism (principal); R07.89 Other chest pain; I10 Essential (primary) hypertension; J45.909 Unspecified asthma, uncomplicated; Z88.6 Allergy status to analgesic agent; Z88.8 Allergy status to other drugs, medicaments and biological substances; Z79.899 Other long term (current) drug therapy
CPT/HCPCS: 36415; 71045; 71275; 76376; 80053; 84484; 85025; 93005; 96372; 99285; J1885; Q9967